=== PATIENT | female | born 1945 | race Caucasian/White ===

== ENCOUNTER 2018-06-19 11:43 | Emergency (ER) | payer MEDICARE, BC ==
[2018-06-19 11:58] VITALS: BP 118/63
[2018-06-19] MEDS ORDERED: Lidocaine 2.5%/Prilocain 2.5%* 5 GM TUBE TOPICAL ONE (12:11)
--- NOTE | 2018-06-19 13:16 | UC ---
Skin Complaint HPI - HPI Summary HPI Summary: Pt presents with c/o right finger swelling, tenderness and concern for FB X7 days. . Pt was gardening last week and said that she believes a piece of dried grass is stuck under cuticle of of right middle finger. Pt has been soaking finger and trying other home remedies with no improvement. - History of Current Complaint Chief Complaint: UCUpperExtremity Time Seen by Provider: 06/19/18 11:47 Stated Complaint: RT MIDDLE FINGER SKIN CONCERN Hx Obtained From: Patient ?: No Onset/Duration: Gradual Onset, Lasting Days - 7, Worse Since - onset Skin Exposure Onset/Duration: Days Ago - 7 Onset Severity: Mild Current Severity: Moderate Pain Intensity: 0 Pain Scale Used: 0-10 Numeric Location: Discrete, Hand (Right) - right middle posterior distal finger at base of nail bed. Character: Pain, Redness, Raised, Painful Aggravating Factor(s): Touch Alleviating Factor(s): Nothing Associated Signs & Symptoms: Positive: Tenderness Related History: Foreign Body - possible - Allergy/Home Medications Allergies/Adverse Reactions: Allergies Allergy/AdvReac Type Severity Reaction Status Date / Time lamotrigine [From Lamictal] Allergy See Comment Verified 06/19/18 12:00 niacin Allergy Hives Verified 06/19/18 12:01 promethazine [From Phenergan] Allergy See Comment Verified 06/19/18 12:00 zonisamide [From Zonegran] Allergy Headache Verified 06/19/18 12:01 Home Medications: Home Medications Multivitamin [One-Daily Multi-Vitamin] 1 each PO 06/19/18 [History] PMH/Surg Hx/FS Hx/Imm Hx Previously Healthy: Yes - Surgical History Surgical History: Yes Surgery Procedure, Year, and Place: colon resection 2005. 1980 pelvic inflammatory disease - Family History Known Family History: Positive: Cardiac Disease - Social History Occupation: Retired Lives: With Family Alcohol Use: None Substance Use Type: None Smoking Status (MU): Never Smoked Tobacco Have You Smoked in the Last Year: No - Immunization History Vaccination Up to Date: Yes Review of Systems All Other Systems Reviewed And Are Negative: Yes Constitutional: Positive: Negative Skin: Positive: Other - redness, swelling and c/o tenderness. Concern for FB Eyes: Positive: Negative ENT: Positive: Negative Respiratory: Positive: Negative Cardiovascular: Positive: Negative Gastrointestinal: Positive: Negative Genitourinary: Positive: Negative Motor: Positive: Other - mild swelling distal right middle finger posterior, at base of nail bed, medial corner of cuticle Neurovascular: Positive: Negative Musculoskeletal: Positive: Edema - mild swelling right middle finger, base of nailbed/cuticle Neurological: Positive: Negative Psychological: Positive: Negative Is Patient Immunocompromised?: No Physical Exam Triage Information Reviewed: Yes Appearance: Well-Appearing Vital Signs: Initial Vital Signs Temp 98.4 F 06/19/18 11:50 Pulse 75 06/19/18 11:50 Resp 18 06/19/18 11:50 BP 118/63 06/19/18 11:50 Pulse Ox 100 06/19/18 11:50 Vital Signs Reviewed: Yes Eye Exam: Normal ENT Exam: Normal Dental Exam: Normal Neck exam: Normal Respiratory Exam: Normal Respiratory: Positive: No respiratory distress Musculoskeletal Exam: Other Musculoskeletal: Positive: Edema @ - mild swelling at base of right middle finger cuticle, with mild erythema, and tiny darkened pinprick "object" possible FB Neurological Exam: Normal Psychological Exam: Normal Skin Exam: Other - mild swelling at base of right middle finger cuticle, with mild erythema, and tiny darkened pinprick "object" possible FB Procedures - Incision and Drainage Right Medial Finger Dorsal Site: right 3rd finger, base of nail bed, cuticle medial aspect; no FB removed Anesthesia: Topical Instrument(s): Scalpel Course/Dx - Course Course Of Treatment: No FB was removed, no pustular drainage, two small 2mm in length incisions made , only bloody drainage. Pt tolerated well. Emla placed on affected area for 25 minutes prior to procedure. - Differential Diagnoses - Skin Complaint Differential Diagnoses: Cellulitis, Foreign Body - Diagnoses Provider Diagnosis: Cellulitis Discharge - Sign-Out/Discharge Documenting (check all that apply): Patient Departure All imaging exams completed and their final reports reviewed: No Studies - Discharge Plan Condition: Stable Disposition: HOME Prescriptions: Cephalexin CAP* [Keflex 500 CAP*] 500 mg PO Q12H #14 cap Patient Education Materials: Soft Tissue Foreign Body (ED), Cellulitis (ED) Referrals: Adriana Burks MD [Primary Care Provider] - If Needed - Billing Disposition and Condition Condition: STABLE Disposition: Home
== END 2018-06-19 13:06 | disposition home or self-care (01) ==
LOC: UCCORT 11:43
DX: L03.011 Cellulitis of right finger (principal); Z88.8 Allergy status to other drugs, medicaments and biological substances
CPT/HCPCS: 10060; 99212; A9270-GY; G0463